=== PATIENT | female | born 1955 | race Caucasian/White ===

== ENCOUNTER → 2017-12-16 | Outpatient (CLI) | payer OTHER ==
[~2017-12-16] MED LIST: ALBU90OI INH; AMOCLA875 PO; ASCO500 PO; ASPI81EC; ATOR10 PO; CLIM.025TP TP; CLON.5 PO; DULO60; ERGO400 PO; ESOM20 PO; FAMO20 PO; HYDCHL25; HYDHCL25 PO; MAGCHL64ER PO; MELA3; METF500; MULVITMINF PO; OXYB5 PO; PANT40; POTASSIUM; POTCIT10 PO; PRIMROSE OIL; ROSU5; TOBR.3OPSO OP; TOCO400 PO; UBID100 PO; VENL150ER PO; ZOLP10 PO
[2017-12-20 14:08] LABS: HPV 16 Negative (Negative); HPV 18 Negative (Negative); HPV OTHER HR TYPES Negative (Negative)
== END | disposition home or self-care (01) ==
LOC: LAB 17:24 → LAB SHORT 17:24
PROVIDERS: Nurse Practitioner Women's Health
DX: Z12.72 Encounter for screening for malignant neoplasm of vagina (principal); Z91.89 Other specified personal risk factors, not elsewhere classified
CPT/HCPCS: 87624; G0123

== ENCOUNTER → 2018-12-20 | Outpatient (CLI) | payer MEDICARE ==
[~2018-12-20] MED LIST changes: +ATOR20 PO; +Clonazepam0.25 MG PO; +Estrace Vagin42.5 GM VAG; +HYDCHL25 PO; +METO100ER PO; +OMEPRAZOLE20 MG PO; +POTASSIUM99 MG PO; +Ventolin/Prove6.7 GM INH
[2018-12-22 15:07] LABS: HPV 16 Negative (Negative); HPV 18 Negative (Negative); HPV OTHER HR TYPES Negative (Negative)
== END | disposition home or self-care (01) ==
LOC: LAB 16:37 → LAB SHORT 16:37
PROVIDERS: Nurse Practitioner Women's Health
DX: Z12.72 Encounter for screening for malignant neoplasm of vagina (principal); R87.89 Other abnormal findings in specimens from female genital organs; Z91.89 Other specified personal risk factors, not elsewhere classified
CPT/HCPCS: 87624; G0123

== ENCOUNTER 2019-01-10 06:35 | Day surgery (SDC) | payer MEDICARE ==
[~2019-01-10] VITALS: Ht 167.6 cm; Wt 98.4 kg
--- NOTE | 2019-01-10 09:51 | NUR ---
01/10/19 0951 Adilia Leyva LATE ENTRY----DURING PROCEDURE PATIENT BEGAN WRETCHING, ZOFRAN WAS GIVEN PER MD ORDER THEN PATIENT BEGAN VOMITING UP LARGE AMOUNTS OF BILE. AIRWAY WAS KEPT CLEAR AND THERE WAS NO DROP IN HER OXYGEN SATURATION. PATIENT REMAINED STABLE THROUGHOUT AND DR NOTIFIED OF ABOVE
== END 2019-01-10 09:30 | disposition home or self-care (01) ==
LOC: ORSCSDS 06:35
PROVIDERS: Surgery
PROC: 0DBH8ZX Excision of Cecum, Via Natural or Artificial Opening Endoscopic, Diagnostic (ICD-10-PCS; principal; 2019-01-10 08:00)
PROC: 0DBP8ZX Excision of Rectum, Via Natural or Artificial Opening Endoscopic, Diagnostic (ICD-10-PCS; principal; 2019-01-10 08:00)
PROC: 0DBM8ZX Excision of Descending Colon, Via Natural or Artificial Opening Endoscopic, Diagnostic (ICD-10-PCS; principal; 2019-01-10 08:00)
PROC: 0DBN8ZX Excision of Sigmoid Colon, Via Natural or Artificial Opening Endoscopic, Diagnostic (ICD-10-PCS; principal; 2019-01-10 08:00)
DX: R19.5 Other fecal abnormalities (principal); D12.5 Benign neoplasm of sigmoid colon; D12.0 Benign neoplasm of cecum; D12.4 Benign neoplasm of descending colon; D12.8 Benign neoplasm of rectum; E78.5 Hyperlipidemia, unspecified; I10 Essential (primary) hypertension; Z79.899 Other long term (current) drug therapy
CPT/HCPCS: 82947; 88305; J0330; J2405; J2704; J7120

== ENCOUNTER 2022-03-05 07:31 | Day surgery (SDC) | payer MEDICARE ==
[~2022-03-05] VITALS: Ht 167.6 cm; Wt 93.6 kg
[~2022-03-05 07:31] MED LIST changes: +DILT120 PO; +LOSA25 PO; +METF500 PO
[2022-03-05] MEDS ORDERED: GEMF600 (07:50)
--- NOTE | 2022-03-05 10:19 | NUR ---
03/05/22 1019 WANDA ARAYA REPORTED VOMITTING AND PT SUCTIONED TO [employer] AND [employer] [facility]
== END 2022-03-05 10:23 | disposition home or self-care (01) ==
LOC: ORSCSDS 07:31
PROVIDERS: Surgery
PROC: 0DBL8ZX Excision of Transverse Colon, Via Natural or Artificial Opening Endoscopic, Diagnostic (ICD-10-PCS; principal; 2022-03-05 09:00)
PROC: 0DBK8ZX Excision of Ascending Colon, Via Natural or Artificial Opening Endoscopic, Diagnostic (ICD-10-PCS; principal; 2022-03-05 09:00)
DX: Z12.11 Encounter for screening for malignant neoplasm of colon (principal); Z86.010 Personal history of colon polyps; D12.2 Benign neoplasm of ascending colon; D12.3 Benign neoplasm of transverse colon; F41.8 Other specified anxiety disorders; J45.909 Unspecified asthma, uncomplicated; K21.9 Gastro-esophageal reflux disease without esophagitis; E78.5 Hyperlipidemia, unspecified; E11.9 Type 2 diabetes mellitus without complications; E66.9 Obesity, unspecified; Z68.34 Body mass index [BMI] 34.0-34.9, adult; Z87.891 Personal history of nicotine dependence; Z79.84 Long term (current) use of oral hypoglycemic drugs; Z79.899 Other long term (current) drug therapy
CPT/HCPCS: 82947; 88305; J2405; J2704; J7120

== ENCOUNTER → 2022-07-20 | Outpatient (CLI) | payer MEDICARE ==
[~2022-07-20] MED LIST changes: +GEMF600
== END | disposition home or self-care (01) ==
LOC: PLD 07:29 → LAB SHORT 07:29
DX: D22.5 Melanocytic nevi of trunk (principal)
CPT/HCPCS: 88305